=== PATIENT | female | born 1990 | race Caucasian/White ===

== ENCOUNTER 2021-07-12 10:46 | Emergency (ER) | payer OTHER ==
[~2021-07-12] VITALS: Ht 160 cm; Wt 64.9 kg
[2021-07-12 10:56] VITALS: BP 125/60
--- NOTE | 2021-07-12 11:11 | NUR ---
pt ambulated to bed 02 at this time
--- NOTE | 2021-07-12 11:11 | NUR ---
pt swabbed for novel
--- NOTE | 2021-07-12 11:26 | NUR ---
31 y/o Female BIB self for c/o STONE, lower back pain due to chronic sciatica. Pt is AOX4 and able to make all needs known, RA. Resp even and unlabored. States episodes of thick white vaginal discharge, nausea and vomiting x 3 episodes. Emesis appears yellow/white. No coffee ground/red emesis noted at this time. Denies anyone sick at home. Denies dysuria, hematuria, vaginal bleeding. Denies CP at this time. Abd is soft and non-tender at this time with +BS x 4. 1G 0A 0L Pmhx: Asthma Home meds: folic acid, , reglan (no relief) Allergy: egg whites, antihistamines (hives)
[2021-07-12] MEDS ORDERED: METOCLOPRAMIDE 10 MG/2 ML INJ VIAL IVP ONE (11:40)
[2021-07-12] MEDS ORDERED: NACL 0.9% 1,000 ML IV ONE (11:40)
--- NOTE | 2021-07-12 11:58 | NUR ---
IV initiated, blood specimen collected and walked to lab
[2021-07-12 12:20] LABS: BASOPHILS % (AUTO) 0.2 % (0.0-2.0); HEMATOCRIT 35.6 % (36-48); HEMOGLOBIN 12.1 g/dL (12.0-16.0); LYMPHOCYTES # (AUTO) 0.4 K/uL (2.5-16.5); LYMPHOCYTES % (AUTO) 7.4 % (20.5-51.1); MEAN CORPUSCULAR HEMOGLOBIN 29 pg (27-31); MEAN CORPUSCULAR HGB CONC 34 g/dL (33-37); MEAN CORPUSCULAR VOLUME 84.7 fL (80-94); MONOCYTES # (AUTO) 0.4 K/uL (0.8-1.0); MONOCYTES % (AUTO) 7.5 % (1.7-9.3); NEUTROPHILS % (AUTO) 84.9 % (42.2-75.2); PLATELET COUNT (AUTO) 217 K/uL (140-450); RED CELL DISTRIBUTION WIDTH 14.3 % (11.6-13.7); WHITE BLOOD COUNT (AUTO) 5.9 K/uL (4.8-10.8)
[2021-07-12 13:15] LABS: ALBUMIN 3.7 g/dL (3.4-5.0); ANION GAP 15.4 (8-16); CARBON DIOXIDE 22.1 mmol/L (21-32); CREATININE 0.6 mg/dL (0.6-1.3); POTASSIUM 3.5 mmol/L (3.5-5.1); TOTAL BILIRUBIN 0.3 mg/dL (0.0-1.0)
[2021-07-12] MEDS ORDERED: DEXT30SE7 PO (13:43)
[2021-07-12] MEDS ORDERED: GYNLOTC VG (13:43)
[2021-07-12] MEDS ORDERED: ACET-10509 PO (13:43)
[2021-07-12] MEDS ORDERED: PHEN177S23 PO (13:43)
[2021-07-12 13:56] VITALS: BP 126/69
--- NOTE | 2021-07-12 13:56 | NUR ---
Patient discharged with v/s stable. Written and verbal after care instructions given and explained with teachback. Patient alert, oriented and verbalized understanding of instructions. Ambulatory with steady gait. All questions addressed prior to discharge. ID band removed. Patient advised to follow up with PMD. Rx of tylenol extra strength/delsym/clotrimazole/phenol given. Patient educated on indication of medication including possible reaction and side effects. Opportunity to ask questions provided and answered.
== END 2021-07-12 13:56 | disposition home or self-care (01) ==
LOC: MED 10:46
DX: O98.511 Other viral diseases complicating pregnancy, first trimester (principal); U07.1 COVID-19; O23.591 Infection of other part of genital tract in pregnancy, first trimester; Z3A.11 11 weeks gestation of pregnancy
CPT/HCPCS: 36415; 80053; 81002; 81025; 85025; 96361; 96374; 99283; J2765; J7030; U0003